=== PATIENT | female | born 1960 | race Caucasian/White ===

== ENCOUNTER 2019-07-29 22:09 | Inpatient (IN) ==
[2019-07-30] MEDS ORDERED: MORPHINE 4 MG/1 ML VIAL IV PRN (01:15)
[2019-07-30] MEDS ORDERED: ONDANSETRON 4 MG/2 ML VIAL IV PRN (01:15)
[2019-07-30] MEDS ORDERED: NICOTINE 21 MG/24 HR PATCH TRANSDERM PRN (01:15)
[2019-07-30] MEDS ORDERED: ACETAMINOPHEN 325 MG TABLET PO PRN (01:15)
[2019-07-30 02:05] LABS: Basophils % 0.5 % (0.0-0.8); Eosinophils # 0.2 10*3/uL (0.0-0.87); Eosinophils % 2.4 % (0.00-10.9); Hematocrit 35.7 VOL% (35.7-47.0); Hemoglobin 11.9 GM/DL (12.0-16.0); Immature Granulocytes % 0.6 %; Immature Granulocytes Absolute 0.05 #; Lymphocytes # 1.7 10*3/uL (1.4-4.0); Lymphocytes % 20.2 % (21.3-54.2); Mean Corpuscular HGB Conc 33.3 GM/DL (32-36); Mean Corpuscular Volume 92.5 FL (87-102); Mean Platelet Volume 9.8 FL (9.6-12.0); Monocytes % 8.7 % (1.7-12.7); Neutrophils % 67.6 % (38.7-73.9); Platelet Count 217 T/CUMM (130-400); Red Blood Count 3.86 MC/CUMM (3.8-5.5); Red Cell Distribution Width 11.9 % (9.3-17.3); White Blood Count 8.6 T/CUMM (4-12)
[2019-07-30 02:25] LABS: Albumin 3.1 G/DL (3.4-5.0); Bilirubin,Total 0.4 MG/DL (0.2-1.0); Osmolality,Calculated 279.4 MOS/KG (273-304); Total Protein 7.1 G/DL (6.4-8.3)
[2019-07-30] MEDS: APIXABAN 5 MG TABLET PO SCH ×2 (08:56→22:03)
[2019-07-30 09:59] LABS: Apearance,Urine CLEAR (Clear); Bilirubin,Urine Negative (Negative); Blood, Urine Negative (Negative); Glucose,Urine (UA) Negative (Negative); Ketones,Urine 5 mg/dL (Negative); Mucus,Urine Occasional /LPF (Occasional); Nitrite,Urine Negative (Negative); Protein,Urine Negative; RBC,Urine 2 /HPF (0-4); Squamous Epithelial Cell,Urine Moderate /HPF (0-10); Urine Color Yellow (Yellow); Urine Specific Gravity 1.016 (1.001-1.035); Urine Urobilinogen < 2.0 EU/DL (0.2-1.0)
[2019-07-30 10:03] LABS: WBC,Urine 13 /HPF (0-6)
[2019-07-30] MEDS ORDERED: AZITHROMYCIN 250 MG TABLET PO SCH (12:00)
[2019-07-30] MEDS: ROSUVASTATIN 10 MG TABLET PO SCH (13:32)
[2019-07-30] MEDS: METOPROLOL SUCCINATE XL 25 MG TABLET PO SCH (13:32)
[2019-07-30] MEDS: DOXYCYCLINE HYCLATE 100 MG CAPSULE PO SCH (13:32)
[2019-07-30] MEDS: ESCITALOPRAM 10 MG TABLET PO SCH (13:32)
[2019-07-30] MEDS ORDERED: cefTRIAXone 1,000 MG in SYRINGE 1 EACH IV SCH (16:00)
[2019-07-30] MEDS ORDERED: BISACODYL 5 MG TABLET PO ONE (17:57)
[2019-07-30] MEDS ORDERED: MAGNESIUM HYDROXIDE SUSP 30 ML UDCUP PO ONE (17:57)
[2019-07-30] MEDS ORDERED: MAGNESIUM CITRATE 300 ML BOTTLE PO ONE (17:57)
[2019-07-31 07:12] LABS: Risk Ratio 2.19
[2019-07-31 08:11] VITALS: BP 142/83
[2019-07-31] MEDS ORDERED: METOPROLOL SUCCINATE XL 25 MG TABLET PO SCH (09:00)
[2019-07-31] MEDS: ROSUVASTATIN 10 MG TABLET PO SCH (09:11)
[2019-07-31] MEDS: DOXYCYCLINE HYCLATE 100 MG CAPSULE PO SCH (09:11)
[2019-07-31] MEDS: ESCITALOPRAM 10 MG TABLET PO SCH (09:11)
[2019-07-31] MEDS: APIXABAN 5 MG TABLET PO SCH (09:11)
[2019-07-31] MEDS: METOPROLOL SUCCINATE XL 25 MG TABLET PO SCH (09:13)
== END 2019-07-31 11:30 | disposition home or self-care (01) | DRG 193 ==
LOC: INTOOBSV 07-30 → N.TELEN 07-30 → SUATTDRO 07-30
PROVIDERS: ADMIT Internal Medicine; ATTEND Internal Medicine